=== PATIENT | male | born 1970 | race Hispanic/Latino ===

== ENCOUNTER → 2024-02-11 07:00 | Outpatient (REF) | payer OTHER, SELFPAY ==
[2024-02-11 07:25] LABS: % Basophils 0.4 % (0-2); % Eosinophils 3.4 % (0-6); % Immature Granulocytes 0.4 % (0-0.5); % Lymphocytes 23.8 % (20.5-51.1); % Monocytes 9.2 % (1.7-9.3); % Neutrophils 62.8 % (42.2-75.2); Absolute Eosinophils 0.2 10^3/uL (0-0.7); Absolute Lymphocytes 1.6 10^3/uL (1.2-3.4); Absolute Monocytes 0.6 10^3/uL (0.1-0.6); Absolute Neutrophils 4.3 10^3/uL (1.4-6.5); Hematocrit 39.1 % (39.0-52.0); Mean Corp Hgb Conc. 35.8 g/dL (33.0-37.0); Mean Corpuscular Hgb 29.6 pg (27.0-31.0); Mean Corpuscular Volume 82.7 fL (80.0-94.0); Mean Platelet Volume 9.3 fL (7.4-10.4); Nucleated Red Blood Cells % 0 % (-); Platelet Count 176 10^3/uL (130-400); Red Blood Cell Count 4.73 10^6/uL (4.70-6.10); Red Cell Dist. Width 12.4 % (11.5-14.5); White Blood Cell Count 6.9 10^3/uL (4.8-10.8)
[2024-02-11 07:30] VITALS: BP 129/79; BP_SYST 60
[2024-02-11 07:37] LABS: INR 1.04; PT 13.4 Sec (11.4-14.6)
[2024-02-11] MEDS: ATIVAN 0.5 MG IV (08:30)
[2024-02-11] MEDS: NSS (PRESERVATIVE FREE) 0.25 ML IV (08:30)
[2024-02-11] MEDS: FLUSH (NSS) 1 FLUSH IV (09:30)
[2024-02-11 10:09] VITALS: BP 123/70
== END ==
LOC: RADI 07:00
PROVIDERS: ATTENDING PHYSICIAN Internal Medicine Hematology & Oncology
DX: C82.15 Follicular lymphoma grade II, lymph nodes of inguinal region and lower limb (principal)
CPT/HCPCS: 88305; 88311; 88312; 36415; 38222; 38505; 76942; 77012; 85025; 85610; 88313; 88333; 88341; 88342

== ENCOUNTER → 2024-03-02 08:54 | Outpatient (REF) | payer OTHER, SELFPAY | LOC: HWRCS 08:54 | PROVIDERS: ATTENDING PHYSICIAN Internal Medicine Hematology & Oncology; FAMILY PHYSICIAN Family Medicine | DX: C85.90 Non-Hodgkin lymphoma, unspecified, unspecified site (principal) | CPT/HCPCS: 93306 ==

== ENCOUNTER → 2024-03-17 07:58 | Outpatient (REF) | payer OTHER, SELFPAY ==
[2024-03-17 08:27] VITALS: BMI 28.3
[2024-03-17 08:28] VITALS: BP 134/70; BP_SYST 59
[2024-03-17] MEDS: ANCEF 10 IV (09:08)
[2024-03-17 10:45] VITALS: BP 116/68
== END ==
LOC: RADI 07:58
PROVIDERS: ATTENDING PHYSICIAN Internal Medicine Hematology & Oncology
DX: C85.90 Non-Hodgkin lymphoma, unspecified, unspecified site (principal)
CPT/HCPCS: 36561; 76937; 77001; 99152; 99153; C1788

== ENCOUNTER → 2024-04-14 13:42 | Outpatient (REF) | payer OTHER, SELFPAY ==
[2024-04-14 14:31] LABS: % Eosinophils 4.5 % (0-6); % Immature Granulocytes 0.4 % (0-0.5); % Lymphocytes 10.9 % (20.5-51.1); % Monocytes 10.7 % (1.7-9.3); % Neutrophils 72.5 % (42.2-75.2); Absolute Basophils 0.1 10^3/uL (0-0.2); Absolute Eosinophils 0.2 10^3/uL (0-0.7); Absolute Lymphocytes 0.5 10^3/uL (1.2-3.4); Absolute Monocytes 0.5 10^3/uL (0.1-0.6); Absolute Neutrophils 3.5 10^3/uL (1.4-6.5); Hematocrit 35.8 % (39.0-52.0); Hemoglobin 12.9 g/dL (13.0-18.0); Mean Corpuscular Hgb 29.1 pg (27.0-31.0); Mean Corpuscular Volume 80.6 fL (80.0-94.0); Mean Platelet Volume 10.5 fL (7.4-10.4); Nucleated Red Blood Cells % 0 % (-); Platelet Count 109 10^3/uL (130-400); Red Blood Cell Count 4.44 10^6/uL (4.70-6.10); Red Cell Dist. Width 14.2 % (11.5-14.5); White Blood Cell Count 4.9 10^3/uL (4.8-10.8)
[2024-04-14 14:43] LABS: ALT (SGPT) 46 U/L (0-50); AST (SGOT) 32 U/L (17-59); Albumin 4.4 g/dl (3.5-5.0); Alkaline Phosphatase 105 U/L (38-126); Blood Urea Nitrogen 14 mg/dl (9-20); Calcium 9.4 mg/dl (8.4-10.2); Carbon Dioxide 28 mmol/L (22-30); Chloride 105 mmol/L (98-107); Glucose 103 mg/dl (70-99); Sodium 144 mmol/L (135-145); Total Bilirubin 0.8 mg/dl (0.2-1.3); Total Protein 7.1 g/dl (6.3-8.2); eGFR > 60.00
== END ==
LOC: OIDL 13:42
PROVIDERS: ATTENDING PHYSICIAN Internal Medicine Hematology & Oncology
DX: C85.90 Non-Hodgkin lymphoma, unspecified, unspecified site (principal)
CPT/HCPCS: 80053; 85025

== ENCOUNTER → 2024-06-09 11:26 | Outpatient (REF) | payer OTHER, SELFPAY ==
[2024-06-09 11:33] LABS: % Basophils 0.4 % (0-2); % Eosinophils 3.8 % (0-6); % Immature Granulocytes 0.2 % (0-0.5); % Lymphocytes 26.1 % (20.5-51.1); % Monocytes 11.8 % (1.7-9.3); % Neutrophils 57.7 % (42.2-75.2); Absolute Eosinophils 0.2 10^3/uL (0-0.7); Absolute Lymphocytes 1.3 10^3/uL (1.2-3.4); Absolute Monocytes 0.6 10^3/uL (0.1-0.6); Absolute Neutrophils 2.9 10^3/uL (1.4-6.5); Hematocrit 35.5 % (39.0-52.0); Hemoglobin 13.1 g/dL (13.0-18.0); Mean Corp Hgb Conc. 36.9 g/dL (33.0-37.0); Mean Corpuscular Hgb 30.6 pg (27.0-31.0); Mean Corpuscular Volume 82.9 fL (80.0-94.0); Mean Platelet Volume 8.9 fL (7.4-10.4); Platelet Count 119 10^3/uL (130-400); Red Blood Cell Count 4.28 10^6/uL (4.70-6.10); Red Cell Dist. Width 13.8 % (11.5-14.5)
[2024-06-09 12:02] LABS: ALT (SGPT) 44 U/L (0-50); AST (SGOT) 35 U/L (17-59); Albumin 4.3 g/dl (3.5-5.0); Alkaline Phosphatase 125 U/L (38-126); Blood Urea Nitrogen 13 mg/dl (9-20); Carbon Dioxide 22 mmol/L (22-30); Chloride 107 mmol/L (98-107); Glucose 96 mg/dl (70-99); Potassium 3.8 mmol/L (3.5-5.1); Sodium 141 mmol/L (135-145); Total Bilirubin 0.7 mg/dl (0.2-1.3); Total Protein 6.9 g/dl (6.3-8.2); eGFR > 60.00
== END ==
LOC: OIDL 11:26
PROVIDERS: ATTENDING PHYSICIAN Internal Medicine Hematology & Oncology
DX: C85.90 Non-Hodgkin lymphoma, unspecified, unspecified site (principal)
CPT/HCPCS: 80053; 85025

== ENCOUNTER → 2024-08-28 07:08 | Outpatient (REF) | payer OTHER, SELFPAY ==
[2024-08-28 08:27] LABS: % Basophils 0.3 % (0-2); % Eosinophils 2.8 % (0-6); % Immature Granulocytes 1.4 % (0-0.5); % Lymphocytes 19.2 % (20.5-51.1); % Monocytes 16.4 % (1.7-9.3); % Neutrophils 59.9 % (42.2-75.2); Absolute Eosinophils 0.1 10^3/uL (0-0.7); Absolute Lymphocytes 0.6 10^3/uL (1.2-3.4); Absolute Monocytes 0.5 10^3/uL (0.1-0.6); Absolute Neutrophils 1.7 10^3/uL (1.4-6.5); Hematocrit 32.2 % (39.0-52.0); Hemoglobin 11.2 g/dL (13.0-18.0); Mean Corp Hgb Conc. 34.8 g/dL (33.0-37.0); Mean Corpuscular Hgb 30.2 pg (27.0-31.0); Mean Corpuscular Volume 86.8 fL (80.0-94.0); Nucleated Red Blood Cells % 0 % (-); Platelet Count 163 10^3/uL (130-400); Red Blood Cell Count 3.71 10^6/uL (4.70-6.10); Red Cell Dist. Width 13.7 % (11.5-14.5); White Blood Cell Count 2.9 10^3/uL (4.8-10.8)
[2024-08-28 09:01] LABS: ALT (SGPT) 49 U/L (0-50); AST (SGOT) 39 U/L (17-59); Alkaline Phosphatase 128 U/L (38-126); Blood Urea Nitrogen 12 mg/dl (9-20); Calcium 8.5 mg/dl (8.4-10.2); Carbon Dioxide 26 mmol/L (22-30); Chloride 105 mmol/L (98-107); Glucose 97 mg/dl (70-99); Potassium 4.2 mmol/L (3.5-5.1); Sodium 140 mmol/L (135-145); Total Bilirubin 0.6 mg/dl (0.2-1.3); Total Protein 6.7 g/dl (6.3-8.2); Uric Acid 4.3 mg/dl (3.5-8.5); eGFR > 60.00
== END ==
LOC: REG 07:08
PROVIDERS: ATTENDING PHYSICIAN Internal Medicine Hematology & Oncology
DX: C85.90 Non-Hodgkin lymphoma, unspecified, unspecified site (principal)
CPT/HCPCS: 36415; 80053; 84550; 85025

== ENCOUNTER → 2024-09-07 15:03 | Outpatient (REF) | payer OTHER, SELFPAY ==
[2024-09-07 15:50] LABS: % Basophils 0.3 % (0-2); % Eosinophils 2.5 % (0-6); % Immature Granulocytes 2.2 % (0-0.5); % Lymphocytes 18.8 % (20.5-51.1); % Monocytes 18.8 % (1.7-9.3); % Neutrophils 57.4 % (42.2-75.2); Absolute Eosinophils 0.1 10^3/uL (0-0.7); Absolute Immature Granulocytes 0.1 10^3/uL (0-0.05); Absolute Lymphocytes 0.7 10^3/uL (1.2-3.4); Absolute Monocytes 0.7 10^3/uL (0.1-0.6); Absolute Neutrophils 2.1 10^3/uL (1.4-6.5); Hematocrit 35.4 % (39.0-52.0); Hemoglobin 12.6 g/dL (13.0-18.0); Mean Corp Hgb Conc. 35.6 g/dL (33.0-37.0); Mean Corpuscular Hgb 30.6 pg (27.0-31.0); Mean Corpuscular Volume 85.9 fL (80.0-94.0); Mean Platelet Volume 8.7 fL (7.4-10.4); Nucleated Red Blood Cells % 0 % (-); Platelet Count 173 10^3/uL (130-400); Red Blood Cell Count 4.12 10^6/uL (4.70-6.10); Red Cell Dist. Width 14.5 % (11.5-14.5); White Blood Cell Count 3.6 10^3/uL (4.8-10.8)
[2024-09-07 16:08] LABS: ALT (SGPT) 38 U/L (0-50); AST (SGOT) 36 U/L (17-59); Albumin 4.2 g/dl (3.5-5.0); Alkaline Phosphatase 124 U/L (38-126); Blood Urea Nitrogen 12 mg/dl (9-20); Calcium 8.6 mg/dl (8.4-10.2); Carbon Dioxide 28 mmol/L (22-30); Chloride 103 mmol/L (98-107); Glucose 81 mg/dl (70-99); Potassium 4.3 mmol/L (3.5-5.1); Sodium 139 mmol/L (135-145); Total Bilirubin 0.6 mg/dl (0.2-1.3); Total Protein 6.8 g/dl (6.3-8.2); Uric Acid 5.9 mg/dl (3.5-8.5); eGFR > 60.00
== END ==
LOC: REG 15:03
PROVIDERS: ATTENDING PHYSICIAN Internal Medicine Hematology & Oncology
DX: C85.90 Non-Hodgkin lymphoma, unspecified, unspecified site (principal)
CPT/HCPCS: 36415; 80053; 84550; 85025

== ENCOUNTER 2024-11-07 08:30 | Emergency (ER) | payer OTHER, SELFPAY ==
[2024-11-07 08:34] VITALS: BP 120/80
[2024-11-07 09:01] VITALS: BMI 26.6
--- NOTE | 2024-11-07 09:05 | ED.GENMED ---
History of Present Illness
General
Chief Complaint: Oral/Mouth Problem
Source: patient
Exam Limitations: none
Time Seen by Provider: 11/07/24 09:02
Nursing documentation reviewed up to this point in time: agreed with
History of Present Illness
History of Present Illness:
This is a 53-year-old male with past medical history of non-Hodgkin's lymphoma presents to the emergency department today with concerns of painful ulcers in his mouth. He states that this started 2 weeks ago with 1 ulcer on his upper lip but then
it progressed to 2 ulcers on his tongue. Patient states that he has a lot of pain with talking and eating but denies any painful swallowing, he denies any shortness of breath. He denies any pain in his chest. He with this, he has had no fevers or
chills, states that he is generally felt well other than the presence of these ulcers. Of note, he does have non-Hodgkin's lymphoma and his last chemo treatment was 3 months ago and he is currently on a break as his scans have been coming back is
clear. He follows with Dr. Fatima. He has never had this happen to him before. Of note, he completed Valtrex on 10/27 for shingles on his right abdomen. He was originally treated by urgent care and he followed up with urgent care a few days ago to
ensure that his shingles was clearing up, and they started him on Augmentin for the lesions in his mouth.
Past History
Past History
ED Past Medical History: None
ED Past Surgical History: None
Social History
Alcohol: Occasional
Personal: Single
Review of Systems
Review of Systems
All Other Systems: ROS reviewed and negative except as documented in HPI and ROS
Phy Exam
Physical Exam
Physical Exam:
General: Patient is well appearing and in no acute distress; non-toxic
Skin: Warm and dry, no rashes or lesions
Head: Normocephalic, atraumatic
Eyes: Sclera non-icteric. EOMs intact.
Mouth: Circular ulcers on an erythematous base noted to the medial tongue, lateral tongue, and inner mucosal surface of upper lip.
Throat: Uvula midline. No pharyngeal erythema.
Cardiac: Regular rate and rhythm, no murmurs
Peripheral Vascular: No lower extremity swelling or edema
Pulm: Normal respiratory effort, no wheezes, rales, or rhonchi
Abdomen: No abdominal tenderness to palpation
Neuro: CN II-XII intact, no focal neurologic deficits.
Psychiatric: Appropriate mood and affect.
Course
Orders/Labs/Results
Orders:
Orders
11/07/24 10:00
Lidocaine Visc/Maalox/Benadryl [Magic or Miracle Mouthwash] 10 ml PO ONCE ONE
Vital Signs
Initial and Last Documented VS:
Initial Vital Signs
Temp Pulse Resp BP Pulse Ox
98.3 F 88 18 120/80 98
11/07/24 08:34 11/07/24 08:34 11/07/24 08:34 11/07/24 08:34 11/07/24 08:34
Last Documented Vital Signs
Temp Pulse Resp BP Pulse Ox
98.3 F 80 16 121/70 98
11/07/24 08:34 11/07/24 09:50 11/07/24 09:50 11/07/24 09:50 11/07/24 09:50
MDM/Problems Addressed
Differential Diagnosis Includes:
ddx include aphthous ulcer, viral stomatitis---herpes etc, oral candidiasis, malignancy
MDM/Problems Addressed:
53-year-old male with past medical history of non-Hodgkin's lymphoma presents emergency department today with concerns of sores in his mouth. He has no other associate symptoms�no fevers or chills no nausea vomiting no chest pain or shortness of
breath. I sent pictures of his lesions to ENT physician on-call who feels that these lesions are likely viral and recommends restarting the Valtrex.. Of note, patient was recently treated for shingles and had a course of Valtrex. Will give
patient viscous lidocaine to swish at home which manages pain and will restart patient on Valtrex. He will follow-up with ENT in the coming weeks. Return precautions discussed.
Chronic conditions affecting care:
N/A
*Pulse Oximetry
Patient hypoxic: no
*Critical Care Note
Total Time (30-74mins, 75-104mins- exclusive of procedures): Not Applicable
Data Reviewed
Review of Other/Old Records Reveals: Records (Reviewed previous records from ER physician documentation from 05/11 patient seen for open phalanx fracture, reviewed history and physical from 03/17/2024 patient seen for non-Hodgkin's lymphoma)
Source: patient and records
ED Attending Note
-
Portions of this chart may have been created with voice recognition software.� Occasional wrong word or��sound alike� substitutions may have occurred due to the inherent limitations of voice recognition software.
Discharge Plan
Departure
Patient Disposition: Home (Routine Discharge)
Date of Disposition: 11/07/24
Time of Disposition: 10:12
Patient with high blood pressure during this ER visit?: No
Condition: Good
Discharge Problem:
Viral stomatitis
Instructions: Mouth sores
Prescriptions:
New
lidocaine HCl [Lidocaine Viscous] 2 % solution
10 ml mucous membrane Q4H PRN (Reason: Pain) Qty: 100 0RF
valacyclovir [Valtrex] 1 gram tablet
1,000 mg PO BID 10 Days Qty: 20 0RF
No Action
acetaminophen [Tylenol Ex Str Rapid Release] 500 mg Tablet
1,000 mg PO Q6H PRN (Reason: pain)
ibuprofen [Motrin] 400 mg Tablet
400 mg PO Q6H PRN (Reason: pain)
Referrals:
NONE,* [Family Provider] -
Patrick Buck MD [Active] - Call in 1-3 days for appt
Activity Restrictions/Additional Instructions:
Viscous lidocaine has been sent to your pharmacy. You can swish 10 mL of the solution in your mouth for 1 to 2 minutes and then spit the solution out. You can repeat this every 4 hours as needed.
Valtrex has also been sent to your pharmacy. Please take 1 g twice daily for 10 days. Please call the attached number to schedule follow-up with ENT.
Please follow-up with Dr. Fatima as needed.
PLEASE RETURN EMERGENCY DEPARTMENT SHOULD YOU DEVELOP FEVERS OR CHILLS, INTRACTABLE NAUSEA OR VOMITING, ACUTE WORSENING OF YOUR SYMPTOMS, CHEST PAIN, INABILITY TO TOLERATE ORAL INTAKE, SHORTNESS OF BREATH, GENERALIZED WEAKNESS, OR ANY OTHER SIGNS OR
SYMPTOMS WORRISOME TO YOU.
Interventions
Interventions:
*Risk Screen - Suicide Last Done: 11/07/24 08:34
*General Assessment Last Done: 11/07/24 08:34
*Neglect/Abuse Screening Last Done: 11/07/24 09:01
*ED- Fall Risk Assessment Last Done: 11/07/24 08:34
*ED COVID-19 Vaccine History Last Done: 11/07/24 08:34
*Nursing Disposition Last Done: 11/07/24 10:45
Discharge Date and Time
Discharge Date/Time: 11/07/24 10:45
Print Language: SAMOAN
[2024-11-07 09:50] VITALS: BP 121/70
[2024-11-07] MEDS: MAGIC OR MIRACLE MOUTHWASH 10 ML PO (10:37)
== END 2024-11-07 10:45 | disposition home or self-care (01) ==
LOC: EMR 08:30
PROVIDERS: EMERGENCY PHYSICIAN Student in an Organized Health Care Education/Training Program
DX: K12.1 Other forms of stomatitis (principal); B97.89 Other viral agents as the cause of diseases classified elsewhere
CPT/HCPCS: 99282